=== PATIENT | male | born 1975 | race Two or more races ===

== ENCOUNTER 2024-11-13 12:41 | Inpatient (IN) | payer MEDICAID, SELFPAY ==
[2024-11-13] VITALS (9 sets, daily range): BP systolic 155–207; BP diastolic 102–121; PULSE 77–94; RESP 15–96; TEMP 36.6–37.2; O2SAT 94–98; BMI 27.4
--- NOTE | 2024-11-13 | XR_ITS ---
Examination: CTA carotids with intravenous contrast CTA brain, head with intravenous contrast. 2-D sagittal, coronal reconstructions. 3-D reconstructions. Exam date and time: November 13, 2024 1256 hrs. Indications: Stroke alert, onset focal neurologic deficit today CTDI: vol (mGy) 17 DLP: (mGycm) 75 Technique: Multiple CTA axial brain, head carotid images post intravenous contrast injection 75 cc, Isovue-370. 2-D sagittal, coronal reconstructions. 3-D reconstructions, 3-D post processing including vascular maximum intensity projection images. Low dose protocols were performed. One or more of the following dose reduction techniques were used; automated exposure control, adjustment of the mA and/or KV according to patient size, use of iterative reconstruction technique. Findings: No significant common carotid carotid bifurcation or internal carotid artery stenoses Codominant vertebral arteries in the neck with no critical stenoses. No cerebral large vessel arterial occlusions, thrombus, dissection or cerebral aneurysm Impression: No significant neck arterial stenoses No cerebral large vessel arterial occlusions or thrombus
--- NOTE | 2024-11-13 12:48 | EKG_ITS ---
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
--- NOTE | 2024-11-13 12:50 | EDNOTE_ITS ---
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 Dizziness described as feeling drunk that is accompanied by left arm numbness, left lip numbness, and intermittent blurred vision. Denies any changes in gait, loss of movement, unilateral weakness, or changes in speech. Patient was LKW at 12:30 PM today. No other associated symptoms or complaints reported. Denies fevers, chills, chest pain, cough, shortness of breath, abdominal pain, nausea, vomiting, or urinary symptoms. Related Data Home Medications ?Medication ?Instructions ?Recorded ?Confirmed No Known Home Medications 11/14/2411/01 Allergies Allergy/AdvReac Type Severity Reaction Status Date / Time No Known Allergies Allergy Verified 11/13/24 12:49 Review of Systems Review of Systems Systems Reviewed: All systems reviewed, normal except as documented Past Medical History Past Medical History NEUROLOGIC: Positive Cerebrovascular Accident Social History SMOKING STATUS: Never smoker ED Exam General Limitations: Present no limitations General appearance: Present alert, in no apparent distress and other (Mild left sided facial droop) Head Head exam: Present atraumatic Eye Eye exam: Present normal appearance, PERRL and EOMI ENT ENT exam: Present normal exam, normal oropharynx and mucous membranes moist Neck Neck exam: Present normal inspection, full ROM and trachea midline Chest Chest inspection: Present normal inspection and symmetric chest wall rise Respiratory Respiratory exam: Present normal lung sounds bilaterally Cardiovascular Cardiovascular exam: Present regular rate, normal rhythm and normal heart sounds Abdominal Exam Abdominal exam: Present soft and normal bowel sounds Extremities Exam Extremities exam: Present normal inspection and full ROM Back Exam Back exam: Present normal inspection and full ROM Neurological Exam Neurological exam: Present alert, oriented X3 and other (Mild left facial droop. no motor or sensory deficits on exam, no dysmetria, no nystagmus, no staccato speech) Psychiatric Psychiatric exam: Present normal affect and normal mood Skin Skin exam: Present warm, dry, intact and normal color Course Course Course Narrative: 1242: Patient evaluated in old triage 1245: Stoke alert was activated Quality Measures Suspected type of Stroke: Non Acute Last known well (date): 11/13/24 Last known well (time): 12:30 Tenecteplase given: Reason(s) TPA not given: Outside the time window and Stroke severity too mild (non-disabling) not given stroke Orders Category Date Time Status Admit to Inpatient Status Routine Admission 11/13/24 14:30 Active Patient Condition Routine Admission 11/13/24 14:30 Ordered Bedside Blood Glucose NOW Care 11/13/24 12:48 Completed COVID-19 Screening Questionnaire NOW Care 11/13/24 15:25 Completed Internal Combustion Engine 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 NOW Care 11/13/24 12:48 Completed Continuous Pulse Oximetry NOW Care 11/13/24 12:48 Completed EKG (ED ONLY) *Do not use* NOW Care 11/13/24 12:48 Completed In and Out Catheter NEEDED Care 11/13/24 12:48 Completed Insert IV NOW Care 11/13/24 12:48 Completed Intake and Output QSHIFT Care 11/13/24 14:30 Ordered MRI Screening NOW Care 11/13/24 14:07 Completed Miscellaneous Nursing Order NOW Care 11/13/24 14:30 Completed NIH Stroke Scale now Care 11/13/24 12:48 Completed NPO NOW Care 11/13/24 12:48 Completed Neuro Check Q2H Care 11/13/24 14:43 Completed Notify provider NEEDED Care 11/13/24 14:30 Completed Nurse Swallow Screen x1 Care 11/13/24 12:48 Completed Obtain weight NOW Care 11/13/24 14:30 Completed Sequential Compression Device QSHIFT Care 11/13/24 14:30 Completed Consult to Neurology / Tele-Neurology Routine Cons 11/13/24 12:48 Active Consult to Neurology / Tele-Neurology Routine Cons 11/13/24 14:37 Active Referral Speech Therapy Routine Cons 11/13/24 15:15 Completed Diet Cardiac Diet 11/13/24 Dinner Active CA echo doppler complete Stat Exams 11/13/24 14:[address] angio stroke protocol Stat Exams 11/13/[address] stroke protocol Stat Exams 11/13/24 12:48 Completed EKG (ED Only) Stat Exams 11/13/24 12:48 Draft MR stroke protocol brain wo con with MRA head and neck Exams 11/14/24 Completed Stat XR chest 1V portable Stat Exams 11/13/24 13:55 Completed Alcohol, Blood Medical Stat Lab 11/13/24 12:45 Completed B-Type Natriuretic Peptide Stat Lab 11/13/24 12:45 Completed CBC Stat Lab 11/13/24 12:45 Completed Comprehensive Metabolic Panel Stat Lab 11/13/24 12:45 Completed Drug Screen,Urine Stat Lab 11/13/24 19:40 Completed Magnesium Stat Lab 11/13/24 12:45 Completed Partial Thromboplastin Time Stat Lab 11/13/24 12:45 Completed Prothrombin Time with INR Stat Lab 11/13/24 12:45 Completed Troponin I Stat Lab 11/13/24 12:45 Completed Urinalysis Stat Lab 11/13/24 19:40 Completed Urine Culture Stat Lab 11/13/24 19:40 Received Acetaminophen Tab [Tylenol Tab] Med 11/13/24 14:30 Active 650 mg PO Q6H PRN Aspirin [Ecotrin] Med 11/14/24 09:00 Active 81 mg PO QDAY Aspirin [Ecotrin] Med 11/13/24 13:40 Discontinued 81 mg PO X1 ONE Atorvastatin Calcium [Lipitor] Med 11/13/24 21:00 Active 40 mg PO HS Famotidine Inj [Pepcid Inj] Med 11/13/24 21:00 Discontinued 20 mg IVP BID Heparin Inj Med 11/13/24 22:00 Active 5,000 unit SC Q8HR Labetalol IV [Trandate IV] Med 11/13/24 14:41 Active 10 mg IVP Q6HR PRN Ondansetron Inj [Zofran Inj] Med 11/13/24 14:30 Active 4 mg IV Q6H PRN Senna [Senokot] Med 11/13/24 14:30 Active 2 tab PO BID PRN Sodium Chloride 0.9% 1000 ml [Ns] 1,000 ml Med 11/13/24 15:05 Discontinued IV 125 mls/hr Code Status Routine Oth 11/13/24 14:30 Ordered Oxygen Delivery DAILY RT 11/13/24 14:30 Completed Oxygen Delivery NOW RT 11/13/24 12:48 Completed Vital Signs Vital signs: Vital Signs Temperature 98.6 F 11/13/24 12:48 Pulse Rate 88 11/13/24 12:48 Respiratory Rate 18 11/13/24 12:48 Blood Pressure 207/103 H 11/13/24 12:48 Pulse Oximetry (%) 98 11/13/24 12:48 Oxygen Delivery Method Room Air 11/13/24 12:48 Pulse ox is 98% on room air which is adequate. Dizziness MDM Narrative MDM Narrative:: Kimberly FloresErikatammy Cummings am scribing for and in the presence of Dr. Johnson. NIHSS 1 Patient data External records reviewed:: None (no previous ED visits for review ) Clinical information provided by:: patient Social determinants that could affect healthcare access:: alcohol use (occasional drinker ) Patient has the following chronic illnesses:: CVA 8 years ago How is presenting disease/condition affected by chronic disease/condition?: exacerbated by Evaluation data The following diagnostics were reviewed and interpreted by me:: lab results, radiology exam(s) and EKG tracing(s) (EKG at 13:14. NSR, HR 81, normal axis, normal ecopty, no acute ischemia ) Lab and/or radiology exams considered but not ordered:: None Interpretation Summary: Ordering Physician: Garrett Johnson MD Date of Service: 11/13/24 Procedure(s): CT angio stroke protocol Accession Number(s): [id number] cc: Shaggy Regalado MD; Garrett Johnson MD~ Examination: CTA carotids with intravenous contrast CTA brain, head with intravenous contrast. 2-D sagittal, coronal reconstructions. 3-D reconstructions. Exam date and time: November 13, 2024 1256 hrs. Indications: Stroke alert, onset focal neurologic deficit today CTDI: vol (mGy) 17 DLP: (mGycm) 75 Technique: Multiple CTA axial brain, head carotid images post intravenous contrast injection 75 cc, Isovue-370. 2-D sagittal, coronal reconstructions. 3-D reconstructions, 3-D post processing including vascular maximum intensity projection images. Low dose protocols were performed. One or more of the following dose reduction techniques were used; automated exposure control, adjustment of the mA and/or KV according to patient size, use of iterative reconstruction technique. Findings: No significant common carotid carotid bifurcation or internal carotid artery stenoses Codominant vertebral arteries in the neck with no critical stenoses. No cerebral large vessel arterial occlusions, thrombus, dissection or cerebral aneurysm Impression: No significant neck arterial stenoses No cerebral large vessel arterial occlusions or thrombus Dictated By: Shaggy Regalado MD Signed By: <Electronically signed by Shaggy Regalado MD in OV> 11/13/24 1311 Ordering Physician: Garrett Johnson MD Date of Service: 11/13/24 Procedure(s): CT stroke protocol Accession Number(s): [id number] cc: Shaggy Regalado MD; Garrett Johnson MD~ Examination: CT brain head without contrast. 2-D sagittal coronal reconstructions Date and time of exam:November 13, 2024, 12:53 PM Indications: Stroke alert, onset focal deficit left-sided facial droop today CTDI: vol (mGy): 48.5. DLP: (mGycm):950. Technique: Multiple CT axial sections of the brain have been obtained, 5 mm slice thickness. Contrast has not been administered. 2-D sagittal, coronal reconstructions have been obtained Low dose protocols were performed. One or more of the following dose reduction techniques were used; automated exposure control, adjustment of the mA and/or KV according to patient size, use of iterative reconstruction technique. Findings: No significant ventricular enlargement. Intra-axial or extra-axial hemorrhage density is not seen. No mass effect or midline shift Basal cisterns are not remarkable. Fourth ventricle is midline. Cranial vault intact. Impression: Negative for acute hemorrhage, mass effect or midline shift Dictated By: Shaggy Reglaado MD Signed By: <Electronically signed by Shaggy Regalado MD in OV> 11/13/24 1304 Medications / Prescriptions Medications or Prescriptions considered but not ordered:: None Medication administrations:: Medication Administration History Acetaminophen (Acetaminophen 325 Mg Tablet) 650 mg PO Q6H PRN PRN Reason: PAIN OR FEVER > 101 Stop: 12/13/24 14:29 Aspirin (Aspirin Ec 81 Mg Tabec) 81 mg PO QDAY KAYLAN Stop: 12/14/24 08:59 Last Admin: 11/14/24 09:28 Dose: 81 mg Documented By: MARVIN Atorvastatin Calcium (Atorvastatin Calcium 20 Mg Tablet) 40 mg PO HS KAYLAN Stop: 12/13/24 20:59 Last Admin: 11/13/24 20:57 Dose: 40 mg Documented By: VERÓNICA Famotidine (Famotidine 20 Mg Tablet) 20 mg PO BID KAYLAN; Protocol Stop: 12/14/24 20:59 Heparin Sodium (Porcine) (Heparin Sod Inj 5000 Unit/Ml Vial) 5,000 unit SC Q8HR KAYLAN Stop: 11/27/24 21:59 Last Admin: 11/14/24 13:59 Dose: 5,000 unit Documented By: MARVIN Co-signed By: DAVONTE Admin: 11/14/24 05:58 Dose: 5,000 unit Documented By: JORDAN Co-signed By: SUMAN Admin: 11/13/24 23:06 Dose: 5,000 unit Documented By: JORDAN Co-signed By: Labetalol HCl (Labetalol Inj 5 Mg/Ml Vial 20 Ml) 10 mg IVP Q6HR PRN PRN Reason: SYSTOLIC BP > 220 Stop: 12/13/24 14:40 Ondansetron HCl (Ondansetron Inj 2 Mg/Ml Inj 2 Ml) 4 mg IV Q6H PRN; Protocol PRN Reason: NAUSEA OR VOMITING Stop: 12/13/24 14:29 Sennosides (Senna Tablet) 2 tab PO BID PRN; Protocol PRN Reason: CONSTIPATION Stop: 12/13/24 14:29 Discontinued Medications Aspirin (Aspirin Ec 81 Mg Tabec) 81 mg PO X1 ONE Stop: 11/13/24 13:41 Last Admin: 11/13/24 15:14 Dose: 81 mg Documented By: SHARON Famotidine (Famotidine Inj 10 Mg/Ml Vial 2 Ml) 20 mg IVP BID KAYLAN Stop: 12/13/24 20:59 Last Admin: 11/14/24 09:29 Dose: 20 mg Documented By: Admin: 11/13/24 20:58 Dose: 20 mg Documented By: VERÓNICA Sodium Chloride (Ns) 1,000 mls @ 125 mls/hr IV .Q8H ONE Stop: 11/13/24 23:04 Last Admin: 11/13/24 15:14 Dose: 125 mls/hr Documented By: SHARON See above Consultations Consultation(s) initiated? (list below): Yes Consultation #1 (Physician, Specialty, Details): I spoke with radiologist Dr. Regalado. Reports negative head CT. Time: 13:02 Consultation #2 (Physician, Specialty, Details): I spoke with teleneurologist Dr. Akins. States patient is not a TNK candidate at this time. NIHSS 1. Advised admitting for stroke work up, MRI brain wo con, starting on daily baby Aspirin. Additionally reports permissive hypertension up to SBP 220. Time: 13:38 Consultation #3 (Physician, Specialty, Details): I spoke with resident working with Dr. Garrido. Discussed patients PMHx, HPI, ED course, exam findings, labs, and radiology results. The hospitalist agree to accept the patient for admission. Time: 13:56 Diagnosis Most likely diagnosis given after review of the tests above:: Acute CVA Admission Indicated Admission indicated?: indicated Admission Request Was there a request for admission?: Yes Admission Attestation Admission request attestation: Discussed case with [] from Hospitalist service regarding admission. Discussed patients ED course, exam findings, labs, and radiology results. The Hospitalist [agrees,declines] to accept the patient for admission. Disposition Plan Disposition Plan: Admit Critical Care Time Critical Care Time Critical Care Time: Yes Total Critical Care Time (min.): 45 Attestation: The high probability of sudden, clinically significant deterioration in the patient's condition required the highest level of my preparedness to intervene urgently. The services I provided to this patient were to treat and/or prevent clinically significant deterioration. Services included the following: chart data review, reviewing nursing notes and/or old charts, documentation time, recruiting operations consultant collaboration regarding findings and treatment options, medication orders and management, direct patient care, vital sign assessments and ordering, interpreting and reviewing diagnostic studies and lab tests. Aggregate critical care time includes only time during which I was engaged in work directly related to the patient's care, as described above, whether at bedside or elsewhere in the Emergency Department. It did not include time spent performing other reported procedures or the services of residents, students, nurses or physician assistants. Discharge Plan Plan Patient Disposition: Admit Acute Care w/in Hospital Problem List Clinical Impression: Acute cerebrovascular accident (CVA)
[2024-11-13 13:13] LABS: Basophils # (Auto) 0.0 Thou/mm3 (0.0-0.2); Basophils % (Auto) 0 % (0-2.5); Eosinophils # (Auto) 0.1 Thou/mm3 (0.0-0.5); Eosinophils % (Auto) 1 % (0-10); Hematocrit 48.8 % (41.0-53.0); Hemoglobin 17.6 g/dL (13.5-16.0); Immature Granulocytes Auto 0.02 Thou/mm3 (0.00-0.00); Lymphocytes # (Auto) 3.2 Thou/mm3 (1.0-4.8); Lymphocytes % (Auto) 48 % (10-50); Mean Corpuscular HGB Conc 36.1 g/dl (31.0-37.0); Mean Corpuscular Hemoglobin 31.8 pg (25.0-35.0); Mean Corpuscular Volume 88 fL (80-100); Monocytes # (Auto) 0.4 Thou/mm3 (0.0-0.8); Monocytes % (Auto) 6 % (0-12); Neutrophils # (Auto) 2.9 Thou/mm3 (1.8-7.7); Neutrophils % (Auto) 44 % (37-80); Nucleated Red Blood Cell # 0.00 Thou/mm3 (0.00-0.00); Nucleated Red Blood Cell % 0 /100 WBC (0); Platelet Count 192 Thou/mm3 (140-440); RDW Standard Deviation 39.9 fL (35.1-43.9); Red Blood Count 5.54 Miln/mm3 (4.50-5.90); White Blood Count 6.6 Thou/mm3 (3.8-10.6)
[2024-11-13 13:29] LABS: INR 1.0 (0.9-1.3); Partial Thromboplastin Time 25.3 Seconds (22.0-36.0); Prothrombin Time 10.9 Seconds (9.0-12.2)
[2024-11-13 13:35] LABS: B-Type Natriuretic Peptide < 20 pg/mL (0-100)
--- NOTE | 2024-11-13 13:41 | ESCONSULT_ITS ---
Tele Neuro Consultation Consultation Date 11/13/24 Most Recent Vital Signs Last Vital Signs Temp 98.6 F 11/13/24 12:48 Pulse 88 11/13/24 12:48 Resp 18 11/13/24 12:48 BP 207/103 H 11/13/24 12:48 Pulse Ox 98 11/13/24 12:48 O2 Del Method Room Air 11/13/24 12:48 Laboratory-Coagulation Panel PT 10.9 Seconds (9.0-12.2) 11/13/24 12:45 INR 1.0 (0.9-1.3) 11/13/24 12:45 APTT 25.3 Seconds (22.0-36.0) 11/13/24 12:45 Consultation Narrative [facility] Patient Name:???JOVANI JARVIS Date of :???1975 Identification Number:??? Date of Service:???11/13/2024 12:47:03 Diagnosis:?R42 - Dizziness/ Vertigo/ Giddiness Impression: ?Jovani Jarvis is a 49 y.o. man with a history of hypertension, hyperlipidemia, prediabetes (not taking any medications at this time) who was LKW around 1225. He went to the bathroom when all of a sudden, he felt dizzy. He says he feels like he is drunk. The drunk feeling comes and goes and lasts seconds at a time. There are no triggers. He is also having numbness in his L arm. He noticed that his face is drooping on the L side. He had some blurry vision. Denies headache. Denies change in speech. This has never happened to him before. NIHSS 1 for mild L lower facial droop. Patient can stand and walk independently. Non contrast head CT shows no acute findings. CTA head/neck shows no LVO. Patient is presenting with spontaneous episodic vestibular syndrome associated with other focal neurological symptoms (L facial droop and L arm numbness). Given the presence of other focal neurological symptoms, differential diagnosis includes acute stroke vs hypertensive urgency vs less likely a peripheral vestibulopathy. TNK was not offered due to lack of disabling findings on exam. ? ? ?Recommendations: ?- Start aspirin 81 mg daily for secondary stroke prevention ?- Permissive hypertension up to 220/120 x 24 hours or less if MRI happens sooner and shows no acute stroke; then goal BP normotensive ?- Continuous cardiac monitoring to evaluate for paroxysmal atrial fibrillation ?- MRI brain without contrast to evaluate for acute ischemia ?- Send routine stroke labs including HbA1c, fasting lipid panel ?- PT/OT/ST evaluation when able Our recommendations are outlined below. Recommendations: ? Stroke/Telemetry Floor ? Neuro Checks (Q2) ? Bedside Swallow Eval ? DVT Prophylaxis ? IV Fluids, Normal Saline ? Head of Bed 30 Degrees ? Euglycemia and Avoid Hyperthermia (PRN Acetaminophen) ? Initiate or continue Aspirin 81 MG daily ? Antihypertensives PRN if Blood pressure is greater than 220/120 or there is a concern for End organ damage/contraindications for permissive HTN. If blood pressure is greater than 220/120 give labetalol PO or IV or Vasotec IV with a goal of 15% reduction in BP during the first 24 hours. Sign Out: ? Discussed with Emergency Department Provider Advanced Imaging:CTA Head and Neck Completed. LVO:No Patient is not a candidate for KD Metrics: Last Known Well: 11/13/2024 12:25:00 Dispatch Time: 11/13/2024 12:47:02 Arrival Time: 11/13/2024 12:41:00 Initial Response Time: 11/13/2024 12:49:06Symptoms: dizziness. Initial patient interaction: 11/13/2024 13:02:55 NIHSS Assessment Completed: 11/13/2024 13:11:50Patient is not a candidate for Thrombolytic. Thrombolytic Medical Decision: 11/13/2024 13:11:52Patient was not deemed candidate for Thrombolytic because of following reasons: Stroke severity too mild (non-disabling) . CT Head: I personally reviewed all the CT images that were available to me and it showed: no signs of acute ischemia or acute hemorrhage. I personally reviewed the CTA head/neck. There are no signs of LVO. Primary Provider Notified of Diagnostic Impression and Management Plan on: 11/13/2024 13:40:34 History of Present Illness:Patient is a 49 year old Male. Patient was brought by private transportation with symptoms of dizziness. Jovani Jarvis is a 49 y.o. man with a history of hypertension, hyperlipidemia, prediabetes (not taking any medications at this time) who was LKW around 1225. He went to the bathroom when all of a sudden, he felt dizzy. He says he feels like he is drunk. The drunk feeling comes and goes and lasts seconds at a time. There are no triggers. He is also having numbness in his L arm. He noticed that his face is drooping on the L side. He had some blurry vision. Denies headache. Denies change in speech. This has never happened to him before. ? Past Medical History: Other PMH:? hypertension, hyperlipidemia, prediabetes Medications: No Anticoagulant use? No Antiplatelet use Reviewed EMR for current medications Allergies:? Reviewed,NKDA Social History: Smoking: No Alcohol Use: Yes Family History: There is no family history of premature cerebrovascular disease pertinent to this consultation ROS : 14 Points Review of Systems was performed and was negative except mentioned in HPI. Past Surgical History: There Is No Surgical History Contributory To Today?s Visit ? Examination: BP(192/105),?Pulse(97), 1A: Level of Consciousness - Alert; keenly responsive?+ 0 1B: Ask Month and Age - Both Questions Right?+ 0 1C: Blink Eyes & Squeeze Hands - Performs Both Tasks?+ 0 2: Test Horizontal Extraocular Movements - Normal?+ 0 3: Test Visual Barahona - No Visual Loss?+ 0 4: Test Facial Palsy (Use Grimace if Obtunded) - Minor paralysis (flat nasolabial fold, smile asymmetry)?+ 1 5A: Test Left Arm Motor Drift - No Drift for 10 Seconds?+ 0 5B: Test Right Arm Motor Drift - No Drift for 10 Seconds?+ 0 6A: Test Left Leg Motor Drift - No Drift for 5 Seconds?+ 0 6B: Test Right Leg Motor Drift - No Drift for 5 Seconds?+ 0 7: Test Limb Ataxia (FNF/Heel-Mckeon) - No Ataxia?+ 0 8: Test Sensation - Normal; No sensory loss?+ 0 9: Test Language/Aphasia - Normal; No aphasia?+ 0 10: Test Dysarthria - Normal?+ 0 11: Test Extinction/Inattention - No abnormality?+ 0 NIHSS Score:?1 NIHSS Free Text :?able to stand and transfer from ER bed to CT table independently; mild L lower facial droop Pre-Morbid Modified Zoar Scale:0 Points = No symptoms at all Spoke with :?Dr. Johnson This consult was conducted in real time using interactive audio and video technology. Patient was informed of the technology being used for this visit and agreed to proceed. Patient located in hospital and provider located at home/office setting. Patient is being evaluated for possible acute neurologic impairment and high probability of imminent or life-threatening deterioration. I spent total of 43 minutes providing care to this patient, including time for face to face visit via telemedicine, review of medical records, imaging studies and discussion of findings with providers, the patient and/or family. Dr Valerie Akins [facility] For Inpatient follow-up with [facility] physician please call [facility] at . As we are not an outpatient service for any post hospital discharge needs please contact the hospital for assistance. If you have any questions for the [facility] physicians or need to reconsult for clinical or diagnostic changes please contact us via [facility] at .
[2024-11-13 13:47] LABS: Alanine Aminotransferase 43 U/L (10-49); Albumin, Serum 4.7 gm/dL (3.5-5.0); Albumin/Globulin Ratio 1.4 (1.2-2.2); Alcohol, Blood Medical < 3.0 mg/dL (0-10.0); Alkaline Phosphatase 80 U/L (46-116); Anion Gap 11 (7-16); Aspartate Amino Transferase 40 U/L (0-34); BUN/Creatinine Ratio 11 Ratio (12-20); Bilirubin,Total 1.6 mg/dL (0.3-1.2); Blood Urea Nitrogen 12 mg/dL (9-23); Calcium 9.8 mg/dL (8.3-10.6); Calcium (Corrected) 9.8 mg/dL (8.5-10.1); Carbon Dioxide 29.6 mMol/L (20.0-31.0); Chloride 102 mMol/L (98-107); Creatinine (Component) 1.1 mg/dL (0.6-1.3); Globulin 3.3 gm/dL (2.3-3.5); Glucose 105 mg/dL (74-106); Magnesium 1.6 mg/dL (1.6-2.6); Osmolality,Calculated 284 (275-295); Potassium 3.3 mMol/L (3.4-5.1); Sodium 143 mMol/L (136-145); Total Protein 8.0 gm/dL (5.7-8.2); Troponin I < 0.020 ng/mL (0.0-0.045); eGFR > 60 See Note
--- NOTE | 2024-11-13 13:55 | XR_ITS ---
Examination: AP chest single view Technique: Portable AP sitting chest single view Date and time: November 13, 2024, 1358 hrs., Comparison November 14, 2014 Indications: Stroke alert today, clinical diagnosis CVA Findings: Mild enlargement left ventricle. Mild to moderate vascular congestion. No aspiration pneumonia. Prominent osteopenia Impression: Mild enlargement left ventricle. Mild to moderate vascular congestion. No aspiration pneumonia
--- NOTE | 2024-11-13 14:01 | PD.RESHP ---
Documentation for date of: 11/13/24 HPI History of Present Illness History of present illness: Patient is a 49-year-old male with a past medical history of previous stroke with no residual deficits, history of hypertension and hyperlipidemia, history of Garcia's palsy, who came into the ER complaining of Dizziness. Patient reported that he felt like a drunk, paroxysmal episodes of dizziness, associated with numbness in his left arm and face. Patient felt that his face was drooping to the left side. At the time of evaluation patient reported that his dizziness and numbness have already resolved. Patient was able to walk around the room without any gait disturbance. Patient had 5/5 power in both upper and lower extremities, no evidence of facial nerve palsy. Patient denied headache, reported he takes his medications at home for hypertension and cholesterol. But did not take them today as he came to the emergency room. Denied fever, denied cough or shortness of breath, denied chest pain. Denied diarrhea or vomiting. In the ED, initial vitals BP 207/103, saturating 98% room air, pulse 88/min stroke alert was called and teleneuro specialist evaluated the patient, NIHSS score of 1 was given to for facial droop, patient was determined not a candidate for thrombolytic therapy. CT head and CTA was negative for hemorrhage and large vessel occlusion. Teleneuro recommended to admit the patient for MRI and further observation, recommended permissive hypertension for 24 hours. Past medical history: History of hypertension, hyperlipidemia, prediabetes, history of stroke with no residual deficits. Social history: Never smoker, occasional alcohol use Family history: Not pertinent Review of Systems Review of Systems Narrative Review of Systems: General: Denies fevers or chills HEENT: Denies congestion or sore throat Heart: Denies chest pain or palpitations Lungs: Denies shortness of breath or cough Abdomen: Denies diarrhea, nausea, vomiting, constipation, bright red blood per rectum or melena Genitourinary: Denies frequency, urgency, dysuria, or hematuria Musculoskeletal: Denies joint pain, denies muscular pain Neurology: As noted above in HPI Review of systems otherwise negative except what is mentioned above. Past Medical History Past Medical History NEUROLOGIC: Positive Cerebrovascular Accident Social History SMOKING STATUS: Never smoker Exam Vital Signs Temp Pulse Resp BP Pulse Ox O2 Del Method 98.6 F 88 18 207/103 H 98 Room Air 11/13/24 12:48 11/13/24 12:48 11/13/24 12:48 11/13/24 12:48 11/13/24 12:48 11/13/24 12:48 Narrative Exam General: AOx3, cooperative Skin: Intact, no cyanosis or edema noted. HEENT: Atraumatic/normocephalic, ZEESHAN, neck supple Heart: RRR, S1 and S2 without clicks or murmurs Lungs: Clear on auscultation bilaterally, no difficulty breathing Abdomen: Soft, nontender. Bowel sounds present . Vascular: Peripheral pulses palpable Neuro: No focal neurological deficits noted. Results: Labs 11/13/24 12:45 11/13/24 12:45 Labs: Short CBC 11/13/24 Range/Units 12:45 WBC 6.6 (3.8-10.6) Thou/mm3 Hgb 17.6 H* (13.5-16.0) g/dL Hct 48.8 (41.0-53.0) % Plt Count 192 (140-440) Thou/mm3 BMP 11/13/24 12:45 Sodium 143 Potassium 3.3 L Chloride 102 Carbon Dioxide 29.6 BUN 12 Creatinine 1.1 Glucose 105 Calcium 9.8 Cardiac Enzymes 11/13/24 Range/Units 12:45 Troponin I < 0.020 (0.0-0.045) ng/mL Liver Function 11/13/24 Range/Units 12:45 Total Bilirubin 1.6 H (0.3-1.2) mg/dL AST 40 H (0-34) U/L ALT 43 (10-49) U/L Alkaline Phosphatase 80 (46-116) U/L Albumin 4.7 (3.5-5.0) gm/dL Quality Measures Quality Measures stroke Suspected type of Stroke: TIA Tenecteplase given: Reason(s) Tenecteplase not given: Stroke severity too mild (non-disabling) not given Rehab services: PT evaluation ordered and Speech Language Pathology eval ordered VTE Prophylaxis: pharmaceutical Antithrombotic by day 2:: not indicated (describe) Statin ordered: <75 y/o high intensity dose Anticoagulation ordered for A-fib or flutter (current or hx): not indicated Medications Home Medications and Allergies Allergies Allergy/AdvReac Type Severity Reaction Status Date / Time No Known Allergies Allergy Verified 11/13/24 12:49 Visit Medications Discontinued Medications Aspirin (Aspirin Ec 81 Mg Tabec) 81 mg PO X1 ONE Stop: 11/13/24 13:41 Assessment & Plan Plan Patient is a 49-year-old male with a past medical history of previous stroke with no residual deficits, history of hypertension and hyperlipidemia, history of Garcia's palsy, who came into the ER complaining of Dizziness. Patient reported that he felt like a drunk, paroxysmal episodes of dizziness, associated with numbness in his left arm and face. In the ED, initial vitals BP 207/103, saturating 98% room air, pulse 88/min stroke alert was called and teleneuro specialist evaluated the patient, NIHSS score of 1 was given to for facial droop, patient was determined not a candidate for thrombolytic therapy. CT head and CTA was negative for hemorrhage and large vessel occlusion. Teleneuro recommended to admit the patient for MRI and further observation, recommended permissive hypertension for 24 hours. #Acute ischemic stroke rule out #TIA #Dizziness #Numbness left upper extremity Presenting symptoms of dizziness left upper extremity numbness and facial droop, resolved in the emergency room, concern for TIA, will need MRI to rule out acute ischemic stroke. EKG showed sinus rhythm. ? CT head and CTA negative for hemorrhage, negative for large vessel occlusion. ? MRI brain stroke protocol ordered ? Q2R neurochecks ? Echo with bubble study ordered ? Neurology consulted Dr. Kowalski was placed ? Aspirin 81 mg daily ? Atorvastatin 40 mg nightly ? Permissive hypertension for the first 24 hours, labetalol 10 mg IVP ordered if SBP more than 220 #Polycythemia Isolated polycythemia likely secondary to dehydration, will add ivf and reevaluate CBC in am - IVF @ 100cc /hr #Hypertensive Urgency #History of hypertension ? Permissive hypertension per teleneuro recommendations ? labetalol 10 mg IVP ordered if SBP more than 220 #History of hyperlipidemia ? Atorvastatin 40 mg nightly Disposition: Telemetry, pending MRI DVT prophylaxis: Heparin subcut GI prophylaxis: Famotidine Diet: Pending bedside swallow eval Lines: PIV CODE STATUS: Full Plan of care discussed with attending Dr. Hema Valenzuela PGY3 Attending Provider Attestation/Addendum Lili Flores, DO, attest that I was physically present for the rushing portions of the service and evaluated the patient with the resident and I reviewed and discussed the case with the resident and agree with the resident's findings and plans of care as documented above Patient is a 49-year-old male with past medical history of CVA with no residual deficits, hypertension, prediabetes and hyperlipidemia who presented to the ED with complaint of dizziness. Patient states that symptoms started around 10 AM during which he states that he had difficulty standing and walking. He also endorsed having numbness in his left arm. A stroke alert was called in the ED during which CT head showed no acute intracranial findings. Head and neck CT also was negative for any LVO or stenosis. Teleneuro was called from ED and recommended further workup workup for possible CVA. Will admit patient to telemetry for further workup and medical management of acute CVAs versus hypertensive urgency. Patient endorsed having resolution of his symptoms. Gross sensation is intact in bilateral upper and lower extremities. He states that his previous stroke resulted in left upper extremity weakness such that he could not move it. He states that he was prescribed medication following the stroke, but has not seen a doctor for several months and has not been taking any medications. Blood pressure was noted to be significantly elevated in the ED with blood pressure of 207/103. Patient was also noted to have polycythemia with hemoglobin 17.6. Patient has a mild left facial droop, but also has a history of Garcia's palsy as well. Patient is able to speak fluently and articulate. Per nursing, patient was standing when he arrived to the ED and did not appear unsteady. Patient has no focal neurological deficits. Will start patient on aspirin and statin for secondary prophylaxis of CVA, allow for permissive hypertension in the first 24 hours and obtain a TSH and A1c. Patient is noted to have polycythemia may be secondary to dehydration. Will start patient on IV fluids. Pending MRI and echo at this time for CVA rule out.
--- NOTE | 2024-11-13 14:57 | ECHO_ITS ---
Transthoracic Echo Report Ht (in): 62 Wt (lb): 155 Exam Location: Echo Lab Status: [facility] Medical Examiner: Crystal Monteiro Indications: Procedure Performed: BP: 157 / 94 HR: 63 Technical Quality: Technically difficult study MEASUREMENTS (Male / Female) Normal Values 2D ECHO LV Diastolic Diameter PLAX 4.4 cm 4.2 - 5.9 / 3.9 - 5.3 cm LV Systolic Diameter PLAX 2.9 cm IVS Diastolic Thickness 1.0 cm 0.6 - 1.0 / 0.6 - 0.9 cm LVPW Diastolic Thickness 1.1 cm 0.6 - 1.0 / 0.6 - 0.9 cm LV Relative Wall Thickness 0.5 LVOT Diameter 1.8 cm Aortic Root Diameter 2.9 cm LV Ejection Fraction MOD BP 64.9 % >= 55 % LV Cardiac Index MOD BP 2533.8 cm?/min?m? LV Ejection Fraction MOD 4C 69.8 % LV Cardiac Index MOD 4C 2477.0 cm?/min?m? LV Ejection Fraction 4C AL 71.0 % LV Cardiac Index 4C AL 2643.4 cm?/min?m? LV Ejection Fraction MOD 2C 54.6 % LV Cardiac Index MOD 2C 2093.7 cm?/min?m? LV Ejection Fraction 2C AL 54.1 % LV Cardiac Index 2C AL 2101.7 cm?/min?m? LA Volume Index 17.7 cm?/m? 16 - 28 cm?/m? Ascending Aorta Diameter 2.9 cm M-MODE Aortic Root Diameter MM 3.0 cm LA Systolic Diameter MM 3.1 cm LA Ao Ratio MM 1.0 AV Cusp Separation MM 1.9 cm DOPPLER AV Peak Velocity 131.0 cm/s AV Peak Gradient 6.9 mmHg AV Mean Gradient 4.0 mmHg AV Velocity Time Integral 27.8 cm LVOT Peak Velocity 99.0 cm/s LVOT Peak Gradient 3.9 mmHg LVOT Velocity Time Integral 21.2 cm LVOT Cardiac Index 1914.4 cm?/min?m? AV Area Cont Eq vti 1.9 cm? AV Area Cont Eq pk 1.9 cm? MV Area PHT 4.6 cm? Mitral E Point Velocity 53.1 cm/s Mitral A Point Velocity 74.5 cm/s Mitral E to A Ratio 0.7 LV E' Lateral Velocity 8.8 cm/s Mitral E to LV E' Lateral Ratio 6.1 LV E' Septal Velocity 7.7 cm/s Mitral E to LV E' Septal Ratio 6.9 PV Peak Velocity 81.5 cm/s PV Peak Gradient 2.7 mmHg FINDINGS Left Ventricle Normal left ventricular size, wall thickness, systolic function with no obvious regional wall motion abnormalities. There is grade I diastolic dysfunction of the left ventricle (impaired relaxation pattern). The ejection fraction is visually estimated at 55-60%. Right Ventricle The right ventricle is normal in size and systolic function. Left Atrium The left atrium is normal by two-dimensional, color flow and Doppler imaging with no structural abnormalities, no thrombus formation present. Right Atrium The right atrium is normal by two-dimensional imaging, color flow and Doppler imaging with no structural abnormalities, no thrombus formation present. Atrial Septum The interatrial septum appears normal with no evidence of a shunt. Aorta The aorta is normal by two-dimensional, color flow and Doppler interrogation. Mitral Valve The mitral valve is normal by two-dimensional, color flow and Doppler interrogation. Trace mitral regurgitation. Aortic Valve The aortic valve is trileaflet and normal by two-dimensional, color flow and Doppler interrogation. There is no significant aortic valve regurgitation. Tricuspid Valve The tricuspid valve is normal by two-dimensional, color flow and Doppler interrogation. There is trace tricuspid valve regurgitation. Pulmonic Valve The pulmonic valve is not well visualized. There is no significant pulmonic valve regurgitation. Vessels The pulmonary artery appears normal. The inferior vena cava pulmonary and hepatic veins appear normal. Pericardium The pericardium is normal by two-dimensional imaging. There is no significant pericardial effusion. CONCLUSIONS Indication: bubble study Negative bubble study for any PFO and ASD. Consider IVON if clinical index of suspicion high for cardioembolic source. Normal LV size and systolic function with no obvious regional wall motion abnormalities. Mild LVH. Grade I diastolic dysfunction. Estimated EF at 55- 60%. Normal RV size and function. Trace MR and TR. No pericardial effusion. Nathaniel Spence (Electronically Signed) Final Date: 15 November 2024 19:35
[2024-11-13] MEDS: ASPIRIN EC 81 MG TABEC PO (15:14)
[2024-11-13] MEDS: SODIUM CHLORIDE 0.9% 1000 ML 1,000 ML 125 ML IV (15:14)
--- NOTE | 2024-11-13 15:19 | PC.NURSE ---
Reassessed swallow screen, patient has left sided facial droop, however, Dr. Garrido at bedside and observed re assessmanet. Per Dr. Garrido ok to give patient water, patient to sit upright, control his airway, alert and oriented x 4, patient able to drink water without difficultly, cough freely and no leaking of water from mouth, patient passed swallow screen.
--- NOTE | 2024-11-13 19:45 | PC.NURSE ---
PT ARRIVED TO ED FOR NEW ONSET OF LEFT SIDE WEAKNESS AND TINGLING. PT STATES IT FELT LIKE MY ARM WAS ASLEEP PT RUSHED TO ER SOON SYMPTOMS STARTED. PT STATES HE HAD A PREVIOUS STROKE 7 YEARS AGO. PT HAS A MINOR LEFT SIDE FACIAL DROP FROM PERVIOUS STROKE. NIHSS WAS DONE AT BEDSIDE BY RN WITH A SCORE OF 1
[2024-11-13 19:48] LABS: Collection Type, Urine Clean Catch; Squamous Epithelial Cell,Urine 0 /hpf (0-5)
[2024-11-13 19:54] LABS: Bilirubin,Urine Negative (Negative); Blood,Urine Negative (Negative); Clarity,Urine Clear (Clear/Hazy); Color,Urine Lt-Yellow (Lt Yel-Yel); Glucose, Urine Negative (Negative); Ketones,Urine Negative (Negative); Leukocyte Esterase,Urine Negative (Negative); Nitrite,Urine Negative (Negative); PH,Urine 7.0 (5.0-7.0); Protein,Urine Negative (Neg - Trace); RBC,Urine 1 /hpf (0-3); Specific Gravity,Urine 1.035 (1.001-1.035); Urobilinogen,Urine Negative mg/dL (0.0-1.0); WBC,Urine < 1 /hpf (0-5)
[2024-11-13 20:18] LABS: Amphetamine/Methamp Scrn,U Negative (Negative); Barbiturate Screen,Urine Negative (Negative); Benzodiazepines Screen,Urine Negative (Negative); Benzoylecgonine Screen, Ur Negative (Negative); Fentanyl Screen,Urine Negative (Negative); Opiate Screen,Urine Negative (Negative); THC Screen,Urine Negative (Negative)
[2024-11-13] MEDS: ATORVASTATIN CALCIUM 20 MG TABLET 40 MG PO (20:57)
[2024-11-13] MEDS: FAMOTIDINE INJ 10 MG/ML VIAL 2 ML 20 MG IVP (20:58)
[2024-11-13] MEDS: HEPARIN SOD INJ 5000 UNIT/ML VIAL SC (23:06)
[2024-11-14] VITALS (7 sets, daily range): BP systolic 138–185; BP diastolic 89–104; PULSE 55–80; RESP 14–27; TEMP 36–36.6; O2SAT 94–99; BMI 27.8
--- NOTE | 2024-11-14 | XR_ITS ---
Examinations: MRI Brain without intravenous contrast. MRA brain without intravenous contrast. MRA carotids without intravenous contrast 3-D vascular reconstructions Date and time of exam: November 14, 2024 0829 hours INDICATIONS: Dizziness numbness in the left arm and face beginning yesterday Technique: Multiple axial and sagittal images of the brain have been obtained MRA brain carotid images without contrast obtained, including 3-D postprocessing, vascular maximum intensity projection images Findings: Sellaturcica is not enlarged. The optic chiasm and infundibular stalk are not remarkable. Prepontine and interpeduncular cisterns are not enlarged. No localized enlargement of the medulla or ysabel. Fourth ventricle and cerebellar tonsils normal in position. Subacute hemorrhage is not seen. Fourth ventricle is midline. Mass in the cerebellopontine angle region is not evident. 7th and 8th nerve complexes exhibits symmetry. Globes are symmetrical with no retro-orbital mass. Increased white matter signal evident multiple punctate foci increased signal in the white matter Diffusion-weighted images demonstrate no focus of restricted diffusion Mass-effect upon the ventricular system is not identified. MRA carotid images no significant carotid stenoses. MRA brain images no cerebral large vessel occlusions Impression: Demyelinating disease
[2024-11-14] MEDS: HEPARIN SOD INJ 5000 UNIT/ML VIAL SC ×3 (05:58→21:14)
[2024-11-14 06:41] LABS: Basophils # (Auto) 0.0 Thou/mm3 (0.0-0.2); Basophils % (Auto) 0 % (0-2.5); Eosinophils # (Auto) 0.1 Thou/mm3 (0.0-0.5); Eosinophils % (Auto) 2 % (0-10); Hematocrit 43.7 % (41.0-53.0); Hemoglobin 15.6 g/dL (13.5-16.0); Immature Granulocytes Auto 0.01 Thou/mm3 (0.00-0.00); Lymphocytes # (Auto) 2.5 Thou/mm3 (1.0-4.8); Lymphocytes % (Auto) 42 % (10-50); Mean Corpuscular HGB Conc 35.7 g/dl (31.0-37.0); Mean Corpuscular Hemoglobin 31.8 pg (25.0-35.0); Mean Corpuscular Volume 89 fL (80-100); Monocytes # (Auto) 0.4 Thou/mm3 (0.0-0.8); Monocytes % (Auto) 7 % (0-12); Neutrophils # (Auto) 2.9 Thou/mm3 (1.8-7.7); Neutrophils % (Auto) 49 % (37-80); Nucleated Red Blood Cell # 0.00 Thou/mm3 (0.00-0.00); Nucleated Red Blood Cell % 0 /100 WBC (0); Platelet Count 181 Thou/mm3 (140-440); RDW Standard Deviation 41.3 fL (35.1-43.9); Red Blood Count 4.90 Miln/mm3 (4.50-5.90); White Blood Count 5.9 Thou/mm3 (3.8-10.6)
[2024-11-14 07:01] LABS: Anion Gap 10 (7-16); BUN/Creatinine Ratio 14 Ratio (12-20); Blood Urea Nitrogen 15 mg/dL (9-23); Calcium 9.5 mg/dL (8.3-10.6); Carbon Dioxide 28.1 mMol/L (20.0-31.0); Chloride 105 mMol/L (98-107); Creatinine (Component) 1.1 mg/dL (0.6-1.3); Estimated Creatinine Clearance 73.6 mL/min (>60); Glucose 101 mg/dL (74-106); Osmolality,Calculated 285 (275-295); Potassium 3.5 mMol/L (3.4-5.1); Sodium 143 mMol/L (136-145); eGFR > 60 See Note
--- NOTE | 2024-11-14 09:13 | PC.SS ---
Follow up note: Pending ECHO and MRI.
[2024-11-14] MEDS: ASPIRIN EC 81 MG TABEC PO (09:28)
[2024-11-14] MEDS: FAMOTIDINE INJ 10 MG/ML VIAL 2 ML 20 MG IVP (09:29)
--- NOTE | 2024-11-14 09:32 | PCS.ST ---
Pt observed with breakfast tray. NO dysphagia. Speech clear. No formal speech services at this time.
--- NOTE | 2024-11-14 10:15 | ESPR_ITS ---
<Statement entered by Elizabeth Deal MD - 11/21/24 14:19> I reviewed above note and agree with findings and plans. I have also personally examined the patient with medicine team and went over assessment and plan with medical team including financial intern and resident physician. Documentation for date of: 11/14/24 Senior resident attestation: Patient evaluated and examined at the bedside, plan of care discussed with rest of the team including my attending physician, except as noted. Patient was admitted for acute stroke versus TIA workup, MRI was concerning for demyelinating disease, neurology was consulted who would like to perform lumbar puncture for CSF examination to assess for oligoclonal bands as well as recommended getting MRI brain with contrast. No focal neurological deficits noted, blood pressure slowly improving after 24 hours, still systolic 160s, will add antihypertensive medication starting tonight. Quresh PGY3 Subjective Subjective Interval history: No acute events overnight. Patient seen and examined at bedside this AM. Macedonian-speaking, applications developer services utilized. Patient denies any numbness or weakness. On physical exam patient had 5 out of 5 strength in all extremities, no neurological deficits. Denies dizziness. Labs and vitals were reviewed. MRI was negative for stroke however showed demyelination disease. Neurology consulted, would like to do LP today. Pending patient consent, patient would like to speak to his family first before making a decision. Still pending echo. Review of systems otherwise negative except what is mentioned above. Exam Vital Signs Temp Pulse Resp BP Pulse Ox O2 Del Method 96.9 F 55 L 14 142/96 H 99 Room Air 11/14/24 08:00 11/14/24 08:00 11/14/24 08:00 11/14/24 08:00 11/14/24 08:00 11/14/24 04:00 Narrative Exam Physical Exam General: Awake and in no acute distress. Conversational and non-toxic appearing. HEENT: Normocephalic, atraumatic, mucous membranes moist. Heart: Regular rate and rhythm, normal S1 and S2, no murmurs. Lungs: Clear to auscultation with no wheezing or crackles. Abdomen: Soft, nondistended, nontender, positive bowel sounds. No guarding or rebound tenderness. Neurologic: Alert and oriented x3, no gross neurological deficit, and patient able to move all 4 extremities. No facial droop. Extremities: No edema. Skin: No rash or ecchymoses. Objective Labs 11/14/24 06:17 11/14/24 06:17 Labs: Laboratory Results - last 24 hr 11/13/24 11/13/24 11/14/24 12:45 19:40 06:17 WBC 6.6 5.9 RBC 5.54 4.90 Hgb 17.6 H* 15.6 D Hct 48.8 43.7 MCV 88 89 MCH 31.8 31.8 MCHC 36.1 35.7 RDW Std Deviation 39.9 41.3 Plt Count 192 181 Neut % (Auto) 44 49 Lymph % (Auto) 48 42 [place] % (Auto) 6 7 Eos % (Auto) 1 2 Baso % (Auto) 0 0 Neut # (Auto) 2.9 2.9 Lymph # (Auto) 3.2 2.5 [place] # (Auto) 0.4 0.4 Eos # (Auto) 0.1 0.1 Baso # (Auto) 0.0 0.0 Immature Gran # (Auto) 0.02 H 0.01 H Absolute Nucleated RBC 0.00 0.00 Immature Gran % 0 0 Nucleated RBC % 0 0 PT 10.9 INR 1.0 APTT 25.3 Sodium 143 143 Potassium 3.3 L 3.5 Chloride 102 105 Carbon Dioxide 29.6 28.1 Anion Gap 11 10 BUN 12 15 Creatinine 1.1 1.1 Estim Creat Clear Calc Not Performed. 73.6 eGFR > 60 > 60 BUN/Creatinine Ratio 11 L 14 Glucose 105 101 Calculated Osmolality 284 285 Calcium 9.8 9.5 Corrected Calcium 9.8 Magnesium 1.6 Total Bilirubin 1.6 H AST 40 H ALT 43 Alkaline Phosphatase 80 Troponin I < 0.020 B-Natriuretic Peptide < 20 Total Protein 8.0 Albumin 4.7 Globulin 3.3 Albumin/Globulin Ratio 1.4 Ur Collection Type Clean Catch Urine Color Lt-Yellow Urine Clarity Clear Urine pH 7.0 Ur Specific [place] 1.035 Urine Protein Negative Urine Glucose (UA) Negative Urine Ketones Negative Urine Blood Negative Urine Nitrite Negative Urine Bilirubin Negative Urine Urobilinogen (Auto) Negative Ur Leukocyte Esterase Negative Urine RBC 1 Urine WBC < 1 Ur Squamous Epith Cells 0 Urine Bacteria None Urine Opiates Screen Negative Urine Fentanyl Screen Negative Ur Barbiturates Screen Negative U Amphetamin/Meth Scrn Negative U Benzodiazepines Scrn Negative U Cocaine Metab Screen Negative U Marijuana (THC) Screen Negative Ethyl Alcohol < 3.0 Quality Measures Quality Measures stroke Suspected type of Stroke: TIA Tenecteplase given: Reason(s) Tenecteplase not given: Stroke severity too mild (non-disabling) not given Rehab services: PT evaluation ordered (not ordered, patient did not have any focal neurologic deficits or balance problems on admission) VTE Prophylaxis: pharmaceutical Antithrombotic by day 2:: not indicated (describe) (no history of atrial fibrillation) Statin ordered: <75 y/o high intensity dose (moderate intensity, atorvastatin 40mg ) Anticoagulation ordered for A-fib or flutter (current or hx): not indicated Assessment & Plan Assessment Current Active Medications: Generic Name Dose Route Start Last Admin Trade Name Freq PRN Reason Stop Dose Admin Acetaminophen 650 mg 11/13/24 14:30 Acetaminophen 325 Mg Tablet PO 12/13/24 14:29 Q6H PRN PAIN OR FEVER > 101 Aspirin 81 mg 11/14/24 09:00 11/14/24 09:28 Aspirin Ec 81 Mg Tabec PO 12/14/24 08:59 81 mg QDAY KAYLAN Administration Atorvastatin Calcium 40 mg 11/13/24 21:00 11/13/24 20:57 Atorvastatin Calcium 20 Mg Tablet PO 12/13/24 20:59 40 mg HS KAYLAN Administration Famotidine 20 mg 11/13/24 21:00 11/14/24 09:29 Famotidine Inj 10 Mg/Ml Vial 2 Ml IVP 12/13/24 20:59 20 mg BID KAYLAN Administration Heparin Sodium (Porcine) 5,000 unit 11/13/24 22:00 11/14/24 05:58 Heparin Sod Inj 5000 Unit/Ml Vial SC 11/27/24 21:59 5,000 unit Q8HR KAYLAN Administration Labetalol HCl 10 mg 11/13/24 14:41 Labetalol Inj 5 Mg/Ml Vial 20 Ml IVP 12/13/24 14:40 Q6HR PRN SYSTOLIC BP > 220 Ondansetron HCl 4 mg 11/13/24 14:30 Ondansetron Inj 2 Mg/Ml Inj 2 Ml IV 12/13/24 14:29 Q6H PRN NAUSEA OR VOMITING Protocol Sennosides 2 tab 11/13/24 14:30 Senna Tablet PO 12/13/24 14:29 BID PRN CONSTIPATION Protocol Plan Patient is a 49-year-old male with a past medical history of previous stroke with no residual deficits, hypertension, hyperlipidemia, Garcia's palsy, who presented to the ED on 11/13/24 for dizziness. Admitted for stroke rule out, likely TIA given negative MRI, pending echo. #TIA #Dizziness - resolved #Numbness left upper extremity - resolved Presenting symptoms of dizziness left upper extremity numbness and facial droop, resolved in the emergency room, concern for TIA, will need MRI to rule out acute ischemic stroke. EKG showed sinus rhythm. CT head and CTA negative for hemorrhage, negative for large vessel occlusion. MRI 11/14 negative, however shows demyelinating disease. - Pending echo with bubble study ? Q2R neurochecks ? Neurology consulted Dr. Kowalski, appreciate recommendations ? Pending patient consent for LP due to concern of demyelinating disease on MRI ? Continue aspirin 81 mg daily ? Continue atorvastatin 40 mg nightly ? Permissive hypertension for the first 24 hours, labetalol 10 mg IVP ordered if SBP more than 220 #Polycythemia?resolved Isolated polycythemia likely secondary to dehydration, will add ivf and reevaluate CBC in am. Status post IVF 1 L x 1. ?Continue to monitor CBC #Hypertensive Urgency - resolved #History of hypertension ? Permissive hypertension per teleneuro recommendations ? labetalol 10 mg IVP ordered if SBP more than 220 #History of hyperlipidemia Chronic. Pending med rec. ?Continue atorvastatin 40 mg nightly Health Maintenance: Disposition: Telemetry, pending MRI DVT prophylaxis: Heparin subcut GI prophylaxis: Famotidine Diet: Pending bedside swallow eval Lines: PIV CODE STATUS: Full Patient plan of care was discussed with the senior resident, Dr. Valenzuela, and attending physician, Dr. Deal. Giselle Bauman, PGY-1
--- NOTE | 2024-11-14 13:54 | PD.RESCONSUL ---
HPI Data of Consult Requesting Physician: Elizabeth Deal MD Admitting Provider: Lili Garrido DO Attending Provider: Elizabeth Deal MD Primary Care Provider: Physician No Primary/Family Consult Narrative History of present illness: Mr. Goodson is a 49-year-old male with a past medical history of previous stroke with no residual deficits, history of hypertension and hyperlipidemia, history of Garcia's palsy, who came into the ER complaining of Dizziness. Patient reported that he felt like a drunk, paroxysmal episodes of dizziness, associated with numbness in his left arm and face. Patient felt that his face was drooping to the left side. At the time of evaluation patient reported that his dizziness and numbness have already resolved. Patient was able to walk around the room without any gait disturbance. Patient had 5/5 power in both upper and lower extremities, no evidence of facial nerve palsy. Patient denied headache, reported he takes his medications at home for hypertension and cholesterol. But did not take them today as he came to the emergency room. Denied fever, denied cough or shortness of breath, denied chest pain. Denied diarrhea or vomiting. In the ED, initial vitals BP 207/103, saturating 98% room air, pulse 88/min stroke alert was called and teleneuro specialist evaluated the patient, NIHSS score of 1 was given to for facial droop, patient was determined not a candidate for thrombolytic therapy. CT head and CTA was negative for hemorrhage and large vessel occlusion. Teleneuro recommended to admit the patient for MRI and further observation, recommended permissive hypertension for 24 hours. Past medical history: History of hypertension, hyperlipidemia, prediabetes, history of stroke with no residual deficits. Social history: Never smoker, occasional alcohol use Today patient reports resolution of all symptoms. He denies headaches, numbness, tingling, weakness, nausea, vomiting vomiting. Extension Edger #: [id number] cc:: cc: Elizabeth Deal MD Review of Systems Review of Systems Narrative Review of Systems: 14 point ROS negative other than HPI Exam Vital Signs Temp Pulse Resp BP Pulse Ox O2 Del Method 96.9 F 55 L 14 142/96 H 99 Room Air 11/14/24 08:00 11/14/24 08:00 11/14/24 08:00 11/14/24 08:00 11/14/24 08:00 11/14/24 04:00 Narrative Exam General: No acute distress, well nourished Eye: PERRL, EOMI, normal conjunctiva, no scleral icterus HENT: Normocephalic, atraumatic, hearing intact to conversation at normal volume, moist oral mucosa Neck: Supple, non-tender, no JVD, no lymphadenopathy Lungs: Non-labored respirations, symmetric chest rise Heart: Peripheral pulses intact bilaterally Abdomen: Soft, non-tender, non-distended Musculoskeletal: Normal range of motion and strength Skin: Skin is warm, dry, no rashes or lesions. Psychiatric: Cooperative, appropriate mood and affect Neurologic: Mental status: Orientation: Oriented to person, place, time, and situation Communication: Patient is cooperative and can follow simple instructions Language: Speech fluent, normal rate and volume, comprehension intact Cranial nerves: CN II: Visual altman intact CN III: Pupils equal, round, and reactive to light CN III, IV, : No gaze deviation, no nystagmus Horizontal pursuit: intact Vertical pursuit: intact Ptosis: none CN V: Facial sensation to light touch intact bilaterally at the forehead, cheeks, and jaw line CN VII: Face symmetric, no facial droop appreciated CN VIII: Able to hear and respond to conversation at normal volume, intact to finger rub CN IX, X: Palate elevation symmetric, uvula midline CN XI: Head turn and shoulder shrug strong, symmetric bilaterally CN XII: Normal tongue protrusion without deviation, no fasciculations Motor: Normal bulk and tone No atrophy No abnormal movements or fasciculations Muscle strength: Shoulder abduction: R 5/5 L 5/5 Elbow flexion: R 5/5 L 5/5 Elbow extension: R 5/5 L 5/5 Hip flexion: R 5/5 L 5/5 Hip extension: R 5/5 L 5/5 Knee flexion: R 5/5 L 5/5 Knee extension: R 5/5 L 5/5 Sensory: RUE: Light touch intact LUE: Light touch intact RLE: Light touch intact LLE: Light touch intact Reflexes: Biceps (C5-6): R 2+ L 2+ Brachioradialis (C5-6): R 2+ L 2+ Triceps (C7-8): R 2+ L 2+ Patellae (L3-4): R 2+ L 2+ Achilles (S1-2):R 2+ L 2+ Cerebellum: RUE: No dysmetria (finger to nose), no dysdiadochokinesia (rapid alternating movements) LUE: No dysmetria (finger to nose), no dysdiadochokinesia (rapid alternating movements) Romberg: negative Gait: Normal stance, stride length, and arm swing Results Labs 11/15/24 05:11 11/15/24 05:11 Labs: Short CBC 11/14/24 Range/Units 06:17 WBC 5.9 (3.8-10.6) Thou/mm3 Hgb 15.6 D (13.5-16.0) g/dL Hct 43.7 (41.0-53.0) % Plt Count 181 (140-440) Thou/mm3 BMP 11/14/24 06:17 Sodium 143 Potassium 3.5 Chloride 105 Carbon Dioxide 28.1 BUN 15 Creatinine 1.1 Glucose 101 Calcium 9.5 Urine 11/13/24 Range/Units 19:40 Urine Color Lt-Yellow (Lt Yel-Yel) Urine Clarity Clear (Clear/Hazy) Urine pH 7.0 (5.0-7.0) Ur Specific [place] 1.035 (1.001-1.035) Urine Protein Negative (Neg - Trace) Urine Glucose (UA) Negative (Negative) Quality Measures Quality Measures stroke Suspected type of Stroke: TIA Tenecteplase given: Reason(s) Tenecteplase not given: Stroke severity too mild (non-disabling) not given Rehab services: PT evaluation ordered VTE Prophylaxis: pharmaceutical Antithrombotic by day 2:: not indicated (describe) Statin ordered: <75 y/o high intensity dose Anticoagulation ordered for A-fib or flutter (current or hx): not indicated Medications Home Medications and Allergies Allergies Allergy/AdvReac Type Severity Reaction Status Date / Time No Known Allergies Allergy Verified 11/13/24 12:49 Visit Medications Acetaminophen (Acetaminophen 325 Mg Tablet) 650 mg PO Q6H PRN PRN Reason: PAIN OR FEVER > 101 Stop: 12/13/24 14:29 Aspirin (Aspirin Ec 81 Mg Tabec) 81 mg PO QDAY KAYLAN Stop: 12/14/24 08:59 Last Admin: 11/14/24 09:28 Dose: 81 mg Atorvastatin Calcium (Atorvastatin Calcium 20 Mg Tablet) 40 mg PO HS KAYLAN Stop: 12/13/24 20:59 Last Admin: 11/13/24 20:57 Dose: 40 mg Famotidine (Famotidine 20 Mg Tablet) 20 mg PO BID KAYLAN; Protocol Stop: 12/14/24 20:59 Heparin Sodium (Porcine) (Heparin Sod Inj 5000 Unit/Ml Vial) 5,000 unit SC Q8HR KAYLAN Stop: 11/27/24 21:59 Last Admin: 11/14/24 05:58 Dose: 5,000 unit Labetalol HCl (Labetalol Inj 5 Mg/Ml Vial 20 Ml) 10 mg IVP Q6HR PRN PRN Reason: SYSTOLIC BP > 220 Stop: 12/13/24 14:40 Ondansetron HCl (Ondansetron Inj 2 Mg/Ml Inj 2 Ml) 4 mg IV Q6H PRN; Protocol PRN Reason: NAUSEA OR VOMITING Stop: 12/13/24 14:29 Sennosides (Senna Tablet) 2 tab PO BID PRN; Protocol PRN Reason: CONSTIPATION Stop: 12/13/24 14:29 Discontinued Medications Aspirin (Aspirin Ec 81 Mg Tabec) 81 mg PO X1 ONE Stop: 11/13/24 13:41 Last Admin: 11/13/24 15:14 Dose: 81 mg Famotidine (Famotidine Inj 10 Mg/Ml Vial 2 Ml) 20 mg IVP BID KAYLAN Stop: 12/13/24 20:59 Last Admin: 11/14/24 09:29 Dose: 20 mg Sodium Chloride (Ns) 1,000 mls @ 125 mls/hr IV .Q8H ONE Stop: 11/13/24 23:04 Last Admin: 11/13/24 15:14 Dose: 125 mls/hr Assessment & Plan Plan # Left sided weakness in left arm and face - resolved # Dizziness - resolved # Demyelinating disease seen on MRI Inital BP in ED 207/103 No residual neuro deficit CBC, CMP, troponin, BNP, UA, UDS, EtOH WNL CT head negative for hemorrhage, midline shift, mass effect. CTA negative for LVO. MRI negative for acute ischemic infarct, positive for demyelinating disease on FLAIR in periventricular and juxtacortical white matter bilaterally. DDX: TIA, MS, demyelinating disease (MS, MOG antibody disease, sarcoidosis, syphilis, HIV, Lyme), hypertensive emergency Plan: - Pending MRI brain w/ contrast - Pending CSF cell count, differential, glucose, protein, VDRL, IgG, KRISTY, cocci, myelin basic protein #Hx CVA #HTN #Hyperlipidemia #Prediabetes No residual symptoms from previous CVA Plan: - Continue ASA 81 mg and high intensity statin - Pending A1C, TTE - Management per primary team Plan discussed with Dr. Dex Anton, PGY1 Attending Provider Attestation/Addendum I personally have seen and examined the patient at the bedside and I agreed with the resident's findings, assessment and plan of care. As the MRI brain findings are suspicious for demyelination, will plan to do lumbar puncture to evaluate further and do MRI brain with contrast to look for any active or acute lesions. Continue with aspirin and statin for now and blood pressure control.
--- NOTE | 2024-11-14 16:06 | PC.SS ---
SS met with patient who is alert/oriented. Pt. was able to verify demographics. Pt. spoke citizen of [place] and confirmed he lives with mom Altagracia Valerio ph: [phone]. Pt is independent with ADL's. No DME used. Pt. was admitted for stroke r/o. Pt. reported PCP is at [facility] and has not seen PCP in months. SS provided pt with community resource list. SS explained his temporary medi-rick is good for 30 days. Pt. stated he does not drive but walks to his appointments. SS provided pt. with transportation assistance number. Pt has been seen by speech and was cleared. Pt is pending PT eval. Pt. states upon discharge sister Brii Goodson ph: [phone] will provide transportation. Pt. stated he uses [facility] [address] Alternate decision maker: Altagracia Valerio ph:[phone] D/C: return home PCP: [facility]
[2024-11-14 18:44] LABS: Coccid Serology, CF CSF (UCD)* See Sep Rpt
[2024-11-14 19:05] LABS: Glucose,CSF 74 mg/dL (40-70); Protein Total,CSF 56 mg/dL (8-32)
--- NOTE | 2024-11-14 19:18 | PC.NURSE ---
[id number]- dr. joseph here to see patient , order to get consent for lumbar puncture, dr joseph did lumbar puncture at bed side, specimen collected and sent to lab for testing.
[2024-11-14 20:30] LABS: CSF Cell Count Tube # Tube # 4; CSF Color Colorless (Colorless); CSF White Blood Cell 0 /cmm; CSF, Appearance Clear (Clear)
[2024-11-14 20:33] LABS: CSF Red Blood Cell 20.9 /cmm
[2024-11-14 20:34] LABS: CSF Mononuclear 0 %; CSF Polynuclear WBC 0 %
[2024-11-14] MEDS: ACETAMINOPHEN 325 MG TABLET 650 MG PO (21:13)
[2024-11-14] MEDS: ATORVASTATIN CALCIUM 20 MG TABLET 40 MG PO (21:14)
[2024-11-14] MEDS: FAMOTIDINE 20 MG TABLET PO (21:14)
[2024-11-15] VITALS: BP 123/77; PULSE 66; PULSE 67; RESP 12; TEMP 36.3; O2SAT 97
--- NOTE | 2024-11-15 | XR_ITS ---
Examination: MRI brain with intravenous contrast TECHNIQUE: Multiple sagittal axial coronal brain MRI images post intravenous administration 14 cc gadolinium Date and time: November 15, 2024 0912 hours Comparison December 19, 2014 INDICATIONS: MRI brain without contrast November 14, 2024, demyelinating disease, symptoms dizziness numbness in the left arm and face beginning yesterday FINDINGS: Ventricles are not enlarged No mass effect upon the ventricular system No effacement sulcal markings Fourth ventricle midline Pituitary is not enlarged No abnormal enhancing cerebellar or cerebral lesions IMPRESSION: No abnormal enhancing cerebellar or cerebral lesions
[2024-11-15 04:00] VITALS: BP 143/96; PULSE 59; PULSE 74; RESP 23; TEMP 36.4; O2SAT 98
[2024-11-15 06:01] LABS: Basophils # (Auto) 0.0 Thou/mm3 (0.0-0.2); Basophils % (Auto) 0 % (0-2.5); Eosinophils # (Auto) 0.1 Thou/mm3 (0.0-0.5); Eosinophils % (Auto) 2 % (0-10); Hematocrit 44.5 % (41.0-53.0); Hemoglobin 16.3 g/dL (13.5-16.0); Immature Granulocytes Auto 0.01 Thou/mm3 (0.00-0.00); Lymphocytes # (Auto) 2.2 Thou/mm3 (1.0-4.8); Lymphocytes % (Auto) 34 % (10-50); Mean Corpuscular HGB Conc 36.6 g/dl (31.0-37.0); Mean Corpuscular Hemoglobin 32.2 pg (25.0-35.0); Mean Corpuscular Volume 88 fL (80-100); Monocytes # (Auto) 0.6 Thou/mm3 (0.0-0.8); Monocytes % (Auto) 9 % (0-12); Neutrophils # (Auto) 3.5 Thou/mm3 (1.8-7.7); Neutrophils % (Auto) 55 % (37-80); Nucleated Red Blood Cell # 0.00 Thou/mm3 (0.00-0.00); Nucleated Red Blood Cell % 0 /100 WBC (0); Platelet Count 147 Thou/mm3 (140-440); RDW Standard Deviation 40.1 fL (35.1-43.9); Red Blood Count 5.06 Miln/mm3 (4.50-5.90); White Blood Count 6.4 Thou/mm3 (3.8-10.6)
[2024-11-15 06:02] LABS: Glucose Estimated Average 114 mg/dL (80-131); Hemoglobin A1C 5.6 % Hgb (4.8-6.0)
[2024-11-15 06:13] LABS: Anion Gap 12 (7-16); BUN/Creatinine Ratio 12 Ratio (12-20); Blood Urea Nitrogen 14 mg/dL (9-23); Calcium 9.3 mg/dL (8.3-10.6); Carbon Dioxide 27.1 mMol/L (20.0-31.0); Chloride 102 mMol/L (98-107); Creatinine (Component) 1.2 mg/dL (0.6-1.3); Estimated Creatinine Clearance 67.5 mL/min (>60); Glucose 107 mg/dL (74-106); Osmolality,Calculated 281 (275-295); Potassium 3.2 mMol/L (3.4-5.1); Sodium 141 mMol/L (136-145); eGFR > 60 See Note
[2024-11-15] MEDS: HEPARIN SOD INJ 5000 UNIT/ML VIAL SC (06:19)
--- NOTE | 2024-11-15 07:39 | PD.RESPRO ---
Documentation for date of: 11/15/24 Exam Vital Signs Temp Pulse Resp BP Pulse Ox O2 Del Method 97.6 F 74 23 H 143/96 H 98 Room Air 11/15/24 04:00 11/15/24 04:00 11/15/24 04:00 11/15/24 04:00 11/15/24 04:00 11/15/24 04:00 Narrative Exam General: No acute distress, well nourished Eye: PERRL, EOMI, normal conjunctiva, no scleral icterus HENT: Normocephalic, atraumatic, hearing intact to conversation at normal volume, moist oral mucosa Neck: Supple, non-tender, no JVD, no lymphadenopathy Lungs: Non-labored respirations, symmetric chest rise Heart: Peripheral pulses intact bilaterally Abdomen: Soft, non-tender, non-distended Musculoskeletal: Normal range of motion and strength Skin: Skin is warm, dry, no rashes or lesions. Psychiatric: Cooperative, appropriate mood and affect Neurologic: Mental status: Orientation: Oriented to person, place, time, and situation Communication: Patient is cooperative and can follow simple instructions Language: Speech fluent, normal rate and volume, comprehension intact Cranial nerves: CN II: Visual altman intact CN III: Pupils equal, round, and reactive to light CN III, IV, : No gaze deviation, no nystagmus Horizontal pursuit: intact Vertical pursuit: intact Ptosis: none CN V: Facial sensation to light touch intact bilaterally at the forehead, cheeks, and jaw line CN VII: Face symmetric, no facial droop appreciated CN VIII: Able to hear and respond to conversation at normal volume, intact to finger rub CN IX, X: Palate elevation symmetric, uvula midline CN XI: Head turn and shoulder shrug strong, symmetric bilaterally CN XII: Normal tongue protrusion without deviation, no fasciculations Motor: Normal bulk and tone No atrophy No abnormal movements or fasciculations Muscle strength: Shoulder abduction: R 5/5 L 5/5 Elbow flexion: R 5/5 L 5/5 Elbow extension: R 5/5 L 5/5 Hip flexion: R 5/5 L 5/5 Hip extension: R 5/5 L 5/5 Knee flexion: R 5/5 L 5/5 Knee extension: R 5/5 L 5/5 Sensory: RUE: Light touch intact LUE: Light touch intact RLE: Light touch intact LLE: Light touch intact Reflexes: Biceps (C5-6): R 2+ L 2+ Brachioradialis (C5-6): R 2+ L 2+ Triceps (C7-8): R 2+ L 2+ Patellae (L3-4): R 2+ L 2+ Achilles (S1-2):R 2+ L 2+ Cerebellum: RUE: No dysmetria (finger to nose), no dysdiadochokinesia (rapid alternating movements) LUE: No dysmetria (finger to nose), no dysdiadochokinesia (rapid alternating movements) Romberg: negative Gait: Normal stance, stride length, and arm swing Objective Labs 11/15/24 05:11 11/15/24 05:11 Labs: Laboratory Results - last 24 hr 11/14/24 11/15/24 18:25 05:11 WBC 6.4 RBC 5.06 Hgb 16.3 H Hct 44.5 MCV 88 MCH 32.2 MCHC 36.6 RDW Std Deviation 40.1 Plt Count 147 D Neut % (Auto) 55 Lymph % (Auto) 34 [place] % (Auto) 9 Eos % (Auto) 2 Baso % (Auto) 0 Neut # (Auto) 3.5 Lymph # (Auto) 2.2 [place] # (Auto) 0.6 Eos # (Auto) 0.1 Baso # (Auto) 0.0 Immature Gran # (Auto) 0.01 H Absolute Nucleated RBC 0.00 Immature Gran % 0 Nucleated RBC % 0 Sodium 141 Potassium 3.2 L Chloride 102 Carbon Dioxide 27.1 Anion Gap 12 BUN 14 Creatinine 1.2 Estim Creat Clear Calc 67.5 eGFR > 60 BUN/Creatinine Ratio [address] Glu mg/dL 114 Hemoglobin A1c 5.6 POC Hemoglobin A1c Cancelled Calculated Osmolality 281 Calcium 9.3 CSF Appearance Clear CSF Color Colorless CSF WBC 0 CSF RBC 20.9 CSF Cell Count Tube # Tube # 4 CSF Mononuclear WBCs 0 CSF Polynuclear WBCs 0 CSF Glucose 74 H CSF Total Protein 56 H Quality Measures Quality Measures stroke Suspected type of Stroke: Non Acute Last known well (date): 11/13/24 Last known well (time): 12:30 Tenecteplase given: Reason(s) Tenecteplase not given: Outside the time window and Stroke severity too mild (non-disabling) not given Assessment & Plan Assessment Current Active Medications: Generic Name Dose Route Start Last Admin Trade Name Freq PRN Reason Stop Dose Admin Acetaminophen 650 mg 11/13/24 14:30 11/14/24 21:13 Acetaminophen 325 Mg Tablet PO 12/13/24 14:29 650 mg Q6H PRN Administration PAIN OR FEVER > 101 Amlodipine Besylate 5 mg 11/14/24 19:00 11/14/24 19:57 Amlodipine Besylate 5 Mg Tablet PO 12/14/24 18:59 5 mg QDAY KAYLAN Administration Aspirin 81 mg 11/14/24 09:00 11/14/24 09:28 Aspirin Ec 81 Mg Tabec PO 12/14/24 08:59 81 mg QDAY KAYLAN Administration Atorvastatin Calcium 40 mg 11/13/24 21:00 11/14/24 21:14 Atorvastatin Calcium 20 Mg Tablet PO 12/13/24 20:59 40 mg HS KAYLAN Administration Famotidine 20 mg 11/14/24 21:00 11/14/24 21:14 Famotidine 20 Mg Tablet PO 12/14/24 20:59 20 mg BID KAYLAN Administration Protocol Heparin Sodium (Porcine) 5,000 unit 11/13/24 22:00 11/15/24 06:19 Heparin Sod Inj 5000 Unit/Ml Vial SC 11/27/24 21:59 5,000 unit Q8HR KAYLAN Administration Labetalol HCl 10 mg 11/13/24 14:41 Labetalol Inj 5 Mg/Ml Vial 20 Ml IVP 12/13/24 14:40 Q6HR PRN SYSTOLIC BP > 220 Ondansetron HCl 4 mg 11/13/24 14:30 Ondansetron Inj 2 Mg/Ml Inj 2 Ml IV 12/13/24 14:29 Q6H PRN NAUSEA OR VOMITING Protocol Potassium Chloride 40 meq 11/15/24 12:00 Potassium Chloride 20 Meq Tabcr PO 11/15/24 12:01 X1 ONE Sennosides 2 tab 11/13/24 14:30 Senna Tablet PO 12/13/24 14:29 BID PRN CONSTIPATION Protocol Plan # Left sided weakness in left arm and face - resolved # Dizziness - resolved # Demyelinating disease seen on MRI Inital BP in ED 207/103 No residual neuro deficit CBC, CMP, troponin, BNP, UA, UDS, EtOH WNL CT head negative for hemorrhage, midline shift, mass effect. CTA negative for LVO. MRI negative for acute ischemic infarct, positive for demyelinating disease on FLAIR in periventricular and juxtacortical white matter bilaterally. CSF: clear, WBC 0, RBC 20.9, monocytes 0, polynucleocytes 0, glucose high 74, protein high 56 --> no active infection, no significant inflammation, non-specific elevated protein c/w dehydration, MS or other chronic neuro conditions DDX: TIA, MS, demyelinating disease (MS, MOG antibody disease, sarcoidosis, syphilis, HIV, Lyme), hypertensive emergency Plan: - Pending MRI brain w/ contrast - Pending CSF VDRL, IgG, KRISTY, cocci, myelin basic protein #Hx CVA #HTN #Hyperlipidemia #Prediabetes No residual symptoms from previous CVA A1c 5.6 Plan: - Continue ASA 81 mg and high intensity statin - Pending A1C, TTE - Management per primary team Plan discussed with Dr. Dex Anton, PGY1
[2024-11-15 08:00] VITALS: BP 145/98; PULSE 60; PULSE 79; RESP 17; TEMP 36.1; O2SAT 97
--- NOTE | 2024-11-15 08:42 | ESDS_ITS ---
<Statement entered by Elizabeth Deal MD - 11/21/24 14:20> I reviewed above note and agree with findings and plans. I have also personally examined the patient with medicine team and went over assessment and plan with medical team including application internship and resident physician. Planned Discharge Date 11/15/24 DS: Providers Provider Date of admission: 11/13/24 22:30 Primary care physician: Physician No Primary/Family Admitting Provider: Lili Garrido DO Attending Provider on Admission: Elizabeth Deal MD Consults: 11/13/24 12:48 Consult to Neurology / Tele-Neurology Routine Comment: Consulting Provider: [facility] 11/13/24 14:37 Consult to Neurology / Tele-Neurology Routine Comment: Consulting Provider: Nura Kowalski 11/13/24 15:15 Referral Speech Therapy Routine Comment: Attending Provider on DC: RESIDENT Cleve Discharging Provider: RESIDENT Cleve DS: Diagnosis Problem List Completed Was Problem List Reviewed/Reconciled?: Yes Hospital Course Hospital Course Hospital course: Summary: Patient is a 49-year-old male with a past medical history of previous stroke with no residual deficits, hypertension, hyperlipidemia, Garcia's palsy, who presented to the ED on 11/13/24 for dizziness. Patient was admitted for stroke, ruled out, subsequently diagnosed with Transient Ischemic Attack (TIA). ED Course: In the ED, initial vitals BP 207/103, saturating 98% room air, pulse 88/min stroke alert was called and teleneuro specialist evaluated the patient, NIHSS score of 1 was given to for facial droop, patient was determined not a candidate for thrombolytic therapy. CT head and CTA was negative for hemorrhage and large vessel occlusion. Teleneuro recommended to admit the patient for MRI and further observation, recommended permissive hypertension for 24 hours. Reason for hospitalization: Patient is a 49-year-old [place]-speaking male with a past medical history of CVA with no residuals neurologic deficits, hypertension, hyperlipidemia, Garcia's palsy who presented to the ED on 11/13 for dizziness and left-sided facial and upper extremity numbness. Symptoms resolved on admission. EKG showed sinus rhythm. CT head and CTA were negative for hemorrhage, negative for large vessel occlusion. MRI 11/14 was negative for stroke, however showed demyelinating disease. Neurology Dr. Kowalski consulted, conducted LP which was unremarkable. MRI with contrast was negative for any lesions. Based on results, patient likely had TIA. Recommend aspirin and statins on discharge. Of note patient also have polycythemia, likely secondary to dehydration. Resolved with IV resuscitation. Patient with history of hypertension and hyperl ipidemia. Recommend continue home medications upon discharge. Patient was medically stable upon discharge, safely discharged home. Discharge Recommendations: -Please follow up with your primary care provider within one week of discharge , follow up with neurology. -If your symptoms worsen,please seek immediate medical attention and return to your nearest emergency room -If you do not have a primary care provider, you may follow up at the [facility] [address] [place] [address], Hospital Diagnoses: #TIA #Dizziness - resolved #Numbness left upper extremity - resolved #Polycythemia?resolved #Hypertensive Urgency - resolved #History of hypertension #History of hyperlipidemia Disposition: Safe disposition to home. - The patient's plan was discussed with attending Dr. Toyin Sharma MD PGY2 Internal Medicine Time Spent with Patient Time attestation: Total time spent providing and/or coordinating discharge services: At least 30 minutes of care coordination Time spent: Greater than 30 minutes Exam Vital Signs Temp Pulse Resp BP Pulse Ox O2 Del Method 96.9 F 60 17 145/98 H 97 Room Air 11/15/24 08:00 11/15/24 08:00 11/15/24 08:00 11/15/24 08:00 11/15/24 08:00 11/15/24 08:00 Narrative Exam Physical Exam General: Awake and in no acute distress. Conversational and non-toxic appearing. HEENT: Normocephalic, atraumatic, mucous membranes moist. Heart: Regular rate and rhythm, normal S1 and S2, no murmurs. Lungs: Clear to auscultation with no wheezing or crackles. Abdomen: Soft, nondistended, nontender, positive bowel sounds. No guarding or rebound tenderness. Neurologic: Alert and oriented x3, no gross neurological deficit, and patient able to move all 4 extremities. Extremities: No edema. Skin: No rash or ecchymoses. Discharge Plan Plan Patient Disposition: HOME (Self Care) Patient condition on transfer: Stable Care Plan Goals: Instructions: -Please follow up with your primary care provider within one week of discharge , follow up with neurology. -If your symptoms worsen,please seek immediate medical attention and return to your nearest emergency room -If you do not have a primary care provider, you may follow up at the [facility] at [address] [place] [address] [address], [place] [address], Prescriptions/Referrals Prescriptions/Med Rec: New amlodipine 5 mg Tablet 5 mg PO QDAY 30 Days Qty: 30 0RF aspirin 81 mg Tablet,Delayed Release (Dr/Ec) 81 mg PO QDAY 30 Days Qty: 30 0RF atorvastatin 40 mg tablet 40 mg PO QPM 30 Days Qty: 30 0RF Referrals: No Primary/Family,Physician [Primary Care Provider] - Nura Kowalski MD [Physician] - Patient/Caregiver Discharge Instructions Discharge Activity: resume usual activities Education Materials: Anatomy of the Brain, Healthy Lifestyle to Prevent ... Print Language: Setswana Stand Alone Forms: Elise Award Info., Patient Portal Info Letter Discharge Order Discharge Orders: Discharge (Routine); Ordered 11/15/24 Ordered By: Mari Sharma Quality Discharge Quality Measures VTE prophylaxis
[2024-11-15] MEDS: POTASSIUM CHLORIDE 10% 20 MEQ/15 ML UDC 40 MEQ PO (10:13)
[2024-11-15 10:14] VITALS: BP 142/93; PULSE 80
[2024-11-15] MEDS: ASPIRIN EC 81 MG TABEC PO (10:14)
[2024-11-15] MEDS: FAMOTIDINE 20 MG TABLET PO (10:15)
[2024-11-15 12:00] VITALS: BP 139/92; PULSE 74; PULSE 91; RESP 16; TEMP 36.2; O2SAT 98
--- NOTE | 2024-11-16 08:29 | EVENTNT_ITS ---
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
--- NOTE | 2024-11-16 08:31 | VVPN_ITS ---
Telemedicine visit statement This visit was conducted with the use of phone visit was obtained on at 0831. Documentation for date of: 11/16/24 Subjective Subjective Interval history: Patient is in telemetry. No new symptoms reported. No headache or dizziness. 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
[2024-11-21 07:43] LABS: Angiotensin Convert Enz, CSF* <5 U/L (< OR = 15); Myelin Basic Protein, CSF* <2.0 mcg/L (< OR = 4.0); Oligoclonal Bands, CSF* ABSENT (ABSENT)
[2024-11-21 08:13] LABS: VDRL, CSF Qual* NON-REACTIVE
[2024-11-24 17:49] LABS: Albumin, CSF 29.5 mg/dL (8.0-42.0); IgG Index, CSF 0.58 (<0.70); IgG, CSF 5.4 mg/dL (0.8-7.7); IgG, Serum 1360 mg/dL (600-1640); Synthesis Rate IgG, CSF +1.4 mg/24 h (-9.9 TO +3.3)
[2024-11-25 06:25] LABS: Albumin, Serum 4.3 g/dL (3.6-5.1)
== END 2024-11-15 15:28 | disposition home or self-care (01) | DRG 47 ==
LOC: SERX 15:42 → S2NX 22:22 → SERX 22:43 → S2NX 22:47
PROVIDERS: Psychiatry & Neurology Neurology; Student in an Organized Health Care Education/Training Program; Admitting Provider Internal Medicine; Emergency Provider Emergency Medicine; Visit Provider Internal Medicine
DX: G45.9 Transient cerebral ischemic attack, unspecified (principal); I16.0 Hypertensive urgency; I10 Essential (primary) hypertension; E78.5 Hyperlipidemia, unspecified; D75.1 Secondary polycythemia; G37.9 Demyelinating disease of central nervous system, unspecified; E86.0 Dehydration; Z60.3 Acculturation difficulty; Z86.73 Personal history of transient ischemic attack (TIA), and cerebral infarction without residual deficits; Z79.82 Long term (current) use of aspirin; Z79.899 Other long term (current) drug therapy
CPT/HCPCS: 36415; 70450; 70496; 70498; 70544; 70552; 71045; 80048; 80053; 80307; 80320; 81001; 82040; 82042; 82164; 82784; 82945; 83036; 83735; 83873; 83880; 83916; 84157; 84484; 85025; 85610; 85730; 86171; 86592; 87086; 89051; 93306; 96372; 96374; A4649; A9579; J1644; J3490; J7030; Q9967; A9270; G0480

== ENCOUNTER 2024-11-24 12:14 | Emergency (ER) | payer MEDICAID, SELFPAY ==
--- NOTE | 2024-11-24 12:20 | EKG_ITS ---
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
[2024-11-24 12:25] VITALS: BP 143/96; PULSE 90; RESP 19; TEMP 37.1; O2SAT 98
--- NOTE | 2024-11-24 13:06 | EDNOTE_ITS ---
ED Eye Problem RME/HPI General Chief complaint: Dizziness Stated complaint: HTN, dizzy, blurred vision Time Seen by Provider: 11/24/24 12:34 Arrival date/time: 11/24/24 12:14 Limitations: no limitations RME / HPI RME / HPI Narrative: DR. KHAN MAIN ED EVALUATION: 49-year-old male with a history of hypertension presents to the Emergency Department with complaint of intermittent blurred vision associated with dizziness. Patient was previously admitted on 11/13/2022 for a CVA and discharged on 11/16/2022, with instructions to follow up with neurology. States his PCP is in the process of obtaining a neurology referral. Following a lumbar puncture, he experienced headache, nausea/vomiting, photophobia, and dizziness, all of which have since resolved. No history of smoking, alcohol, or drug use. 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 CARDIAC: Positive Hypercholesterolemia and Hypertension Social History SMOKING STATUS: Never smoker SUBSTANCE USE: does not use ALCOHOL: Never ED Exam General Limitations: Present no limitations General appearance: Present alert and in no apparent distress Head Head exam: Present atraumatic, normocephalic and normal inspection Eye Eye exam: Present normal appearance, PERRL and EOMI ENT ENT exam: Present normal exam, normal oropharynx and mucous membranes moist Neck Neck exam: Present normal inspection, full ROM and trachea midline Chest Chest inspection: Present normal inspection and symmetric chest wall rise Respiratory Respiratory exam: Present normal lung sounds bilaterally Cardiovascular Cardiovascular exam: Present regular rate, normal rhythm and normal heart sounds Abdominal Exam Abdominal exam: Present soft and normal bowel sounds Extremities Exam Extremities exam: Present normal inspection and full ROM Back Exam Back exam: Present normal inspection and full ROM Neurological Exam Neurological exam: Present alert, oriented X3 and CN II-XII intact Psychiatric Psychiatric exam: Present normal affect and normal mood Skin Skin exam: Present warm, dry, intact and normal color Course Quality Measures none Orders Category Date Time Status EKG (ED ONLY) *Do not use* NOW Care 11/24/24 12:20 Completed EKG (ED Only) Stat Exams 11/24/24 12:20 Draft CBC Stat Lab 11/24/24 13:16 Completed CMP [Comprehensive Metabolic Panel] Stat Lab 11/24/24 13:16 Completed PT [Prothrombin Time with INR] Stat Lab 11/24/24 13:16 Completed Acetaminophen Tab [Tylenol ES Tab] Med 11/24/24 13:04 Discontinued 500 mg PO NOW ONE Vital Signs Vital signs: Vital Signs Temperature 98.7 F 11/24/24 12:25 Pulse Rate 90 11/24/24 12:25 Respiratory Rate 19 11/24/24 12:25 Blood Pressure 143/96 H 11/24/24 12:25 Pulse Oximetry (%) 98 11/24/24 12:25 Oxygen Delivery Method Room Air 11/24/24 12:25 Eye MDM Narrative MDM Narrative:: ITaylor am scribing for and in the presence of Dr. Khan. Patient is a 49-year-old male to the emergency department with concerns for feeling a headache, intermittent episodes of blurred vision. Vital signs and exam as listed. Concern for symptomatic hypertension, metabolic derangement. Patient without any focal neurodeficits on my exam, patient intact strength and sensation, no DISIDA kinesia, no ataxia, patient is GCS 15. Visual altman intact. Patient completely asymptomatic. Less concern for acute stroke at this time. Ordered labs. Patient with evidence of elevated hemoglobin concern the patient may be dehydrated.. I provided patient with a liter of fluids. I did review patient's chart, it appears patient had a lumbar puncture which showed elevated glucose and protein however no white blood cells. Reevaluation patient is hemodynamically stable not in distress continues to be asymptomatic. Advised him to follow-up with his primary care doctor as well as a neurologist as an outpatient. Close return precautions provided. Patient data External records reviewed:: [facility] previous records Clinical information provided by:: patient Social determinants that could affect healthcare access:: none Patient has the following chronic illnesses:: Hypertension. Admitted on 11/13/2022 for a CVA and discharged on 11/16/2022. How is presenting disease/condition affected by chronic disease/condition?: exacerbated by Evaluation data The following diagnostics were reviewed and interpreted by me:: lab results and EKG tracing(s) Lab and/or radiology exams considered but not ordered:: none Interpretation Summary: Patient with elevated hemoglobin, no other acute hematologic or metabolic abnormalities. Medications / Prescriptions Medications or Prescriptions considered but not ordered:: none Medication administrations:: Medication Administration History Discontinued Medications Acetaminophen (Acetaminophen 500 Mg Tablet) 500 mg PO NOW ONE Stop: 11/24/24 13:05 Last Admin: 11/24/24 14:01 Dose: 500 mg Documented By: SANGEETA see above Consultations Consultation(s) initiated? (list below): No Diagnosis Eye Problem Differential Diagnosis: other (post-stroke visual disturbances, vertebrobasilar insufficiency, and medication-related side effects) Most likely diagnosis given after review of the tests above:: Dehydration, hypertension Admission Indicated Admission indicated?: not indicated Admission Request Was there a request for admission?: No Disposition Plan Disposition Plan: Discharge Discharge Attestation Discharge Attestation: The patient and all family members were given an opportunity to ask questions a nd understood the discharge instructions. Discharge instructions specifically effects, indications for sooner follow up or return to the emergency department, and the expected course of current diagnosis. Patient condition: Stable Discharge Plan Plan Patient Disposition: HOME (Self Care) Prescriptions/Referrals Prescriptions/Med Rec: No Action amlodipine 5 mg Tablet 5 mg PO QDAY 30 Days Qty: 30 0RF aspirin 81 mg Tablet,Delayed Release (Dr/Ec) 81 mg PO QDAY 30 Days Qty: 30 0RF atorvastatin 40 mg tablet 40 mg PO QPM 30 Days Qty: 30 0RF Referrals: No Primary/Family,Physician [Primary Care Provider] - In 1 week Problem List Clinical Impression: Hypertension Patient/Caregiver Discharge Instructions Education Materials: Controlling High Blood Pressure Additional Instructions: Por favor hacer reyna con marcelo neurologo esta semana y discutir hollie sintomas. Regresar de inmediato si tiene sintomas que regresan o sintomas de preocupacion. Print Language: Cymraes Stand Alone Forms: Elise Award Info., Patient Portal Info Letter
[2024-11-24 13:28] LABS: Basophils # (Auto) 0.0 Thou/mm3 (0.0-0.2); Basophils % (Auto) 1 % (0-2.5); Eosinophils # (Auto) 0.0 Thou/mm3 (0.0-0.5); Eosinophils % (Auto) 1 % (0-10); Hematocrit 44.9 % (41.0-53.0); Hemoglobin 16.3 g/dL (13.5-16.0); Immature Granulocytes Auto 0.01 Thou/mm3 (0.00-0.00); Lymphocytes # (Auto) 1.3 Thou/mm3 (1.0-4.8); Lymphocytes % (Auto) 26 % (10-50); Mean Corpuscular HGB Conc 36.3 g/dl (31.0-37.0); Mean Corpuscular Hemoglobin 32.3 pg (25.0-35.0); Mean Corpuscular Volume 89 fL (80-100); Monocytes # (Auto) 0.3 Thou/mm3 (0.0-0.8); Monocytes % (Auto) 6 % (0-12); Neutrophils # (Auto) 3.3 Thou/mm3 (1.8-7.7); Neutrophils % (Auto) 66 % (37-80); Nucleated Red Blood Cell # 0.00 Thou/mm3 (0.00-0.00); Nucleated Red Blood Cell % 0 /100 WBC (0); Platelet Count 208 Thou/mm3 (140-440); RDW Standard Deviation 39.8 fL (35.1-43.9); Red Blood Count 5.04 Miln/mm3 (4.50-5.90); White Blood Count 5.0 Thou/mm3 (3.8-10.6)
[2024-11-24 13:36] LABS: INR 1.0 (0.9-1.3); Prothrombin Time 11.0 Seconds (9.0-12.2)
[2024-11-24 13:42] LABS: Alanine Aminotransferase 26 U/L (10-49); Albumin, Serum 4.4 gm/dL (3.5-5.0); Albumin/Globulin Ratio 1.6 (1.2-2.2); Alkaline Phosphatase 73 U/L (46-116); Anion Gap 12 (7-16); Aspartate Amino Transferase 23 U/L (0-34); BUN/Creatinine Ratio 10 Ratio (12-20); Bilirubin,Total 1.3 mg/dL (0.3-1.2); Blood Urea Nitrogen 10 mg/dL (9-23); Calcium 9.7 mg/dL (8.3-10.6); Calcium (Corrected) 9.7 mg/dL (8.5-10.1); Carbon Dioxide 27.0 mMol/L (20.0-31.0); Chloride 101 mMol/L (98-107); Creatinine (Component) 1.0 mg/dL (0.6-1.3); Globulin 2.8 gm/dL (2.3-3.5); Glucose 177 mg/dL (74-106); Osmolality,Calculated 282 (275-295); Potassium 3.2 mMol/L (3.4-5.1); Sodium 140 mMol/L (136-145); Total Protein 7.2 gm/dL (5.7-8.2); eGFR > 60 See Note
[2024-11-24] MEDS: ACETAMINOPHEN 500 MG TABLET PO (14:01)
[2024-11-24 14:15] VITALS: BP 149/94; PULSE 84; RESP 17; TEMP 36.7; O2SAT 97
[2024-11-24] MEDS: RINGERS LACTATED 1000 ML 1,000 ML 999 ML IV (15:40)
[2024-11-24 17:36] VITALS: BP 138/93; PULSE 83; RESP 12; TEMP 36.6; O2SAT 96
== END 2024-11-24 17:38 | disposition home or self-care (01) ==
PROVIDERS: Emergency Provider Emergency Medicine
DX: I10 Essential (primary) hypertension (principal); R00.0 Tachycardia, unspecified; E78.00 Pure hypercholesterolemia, unspecified
CPT/HCPCS: 36415; 80053; 85025; 85610; 93005; 96360; 99283; J7120; A9270